=== PATIENT | female | born 1965 | race Caucasian/White ===

== ENCOUNTER 2017-11-22 13:42 | Outpatient (CLI) | payer BC ==
--- NOTE | 2017-11-22 15:26 | MMO ---
BILATERAL SCREENING MAMMOGRAM: Date: 11/22/17 HISTORY: Screening. COMPARISON: Multiple prior examinations, most recent from 2017. TECHNIQUE: Bilateral screening CC and MLO mammograms, as well as implant displaced mammograms performed. This patient's mammogram was interpreted with the assistance of computer-aided detection. FINDINGS: Benign calcifications right breast. Breast implants are intact. IMPRESSION: BIRADS 2: Benign Finding(s) Continued annual mammographic screening is recommended. POS: [facility]
== END 2017-11-22 13:43 | disposition home or self-care (01) ==
LOC: SCSMAMMO 13:42
PROVIDERS: ATTEND Obstetrics & Gynecology Gynecology
DX: Z12.31 Encounter for screening mammogram for malignant neoplasm of breast (principal)
CPT/HCPCS: 77067

== ENCOUNTER 2018-11-23 10:32 | Outpatient (CLI) | payer BC ==
--- NOTE | 2018-11-26 09:05 | MMO ---
Bilateral MAMMO Bilat Screen [facility]. CLINICAL HISTORY: Patient is 53 years old and is seen for screening. The patient has no family history of breast cancer. The patient has no personal history of cancer. The patient has a history of Implants in 2003 and Implants in 2016. There are bilateral retro-pectoral saline implants VIEWS: The views performed were: bilateral craniocaudal; bilateral mediolateral oblique; and bilateral Implant displaced. FILMS COMPARED: The present examination has been compared to prior imaging studies performed at [facility] on 11/22/2017, and at [facility] on 11/17/2014, 11/19/2015 and 11/21/2016. This study has been interpreted with the assistance of computer-aided detection. MAMMOGRAM FINDINGS: There are scattered fibroglandular densities. There are no suspicious masses, suspicious calcifications, or new areas of architectural distortion. IMPRESSION: THERE IS NO MAMMOGRAPHIC EVIDENCE OF MALIGNANCY. A ROUTINE FOLLOW-UP MAMMOGRAM IN 1 YEAR IS RECOMMENDED. ACR BI-RADS Category 1 - Negative MAMMOGRAPHY NOTE: 1. A negative mammogram report should not delay a biopsy if a dominant of clinically suspicious mass is present. 2. Approximately 10% to 15% of breast cancers are not detected by mammography. 3. Adenosis and dense breasts may obscure an underlying neoplasm. Reported by: KIRSTEN STRONG MD Electonically Signed: [id number]
== END 2018-11-23 10:33 | disposition home or self-care (01) ==
LOC: SCSMAMMO 10:32
PROVIDERS: ATTEND Obstetrics & Gynecology Gynecology
DX: Z12.31 Encounter for screening mammogram for malignant neoplasm of breast (principal); Z98.82 Breast implant status
CPT/HCPCS: 77067

== ENCOUNTER 2019-05-27 12:17 | Outpatient (CLI) | payer BC ==
--- NOTE | 2019-05-27 12:45 | RAD ---
Exam: XR Foot Rt 3 View STANDARD HISTORY: Right foot pain. Patient states pain and first tarsal bone. 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 No acute fracture, dislocation, or other acute osseous abnormality is identified. IMPRESSION: No acute osseous abnormality is identified.
--- NOTE | 2019-05-27 12:46 | RAD ---
Exam: XR Foot Lt 3 View STANDARD HISTORY: Left foot pain. Patient states arthritis. Pain at level of first tarsal bone. COMPARISON: None FINDINGS: No acute fracture, dislocation, or other acute osseous abnormality is identified. IMPRESSION: No acute osseous abnormality is identified.
== END 2019-05-27 12:18 | disposition home or self-care (01) ==
LOC: BICRAD 12:17
PROVIDERS: ATTEND Internal Medicine Rheumatology
DX: M79.671 Pain in right foot (principal); M79.672 Pain in left foot

== ENCOUNTER 2019-06-10 11:55 | Outpatient (CLI) | payer BC ==
--- NOTE | 2019-06-10 12:07 | RAD ---
Exam: XR Wrist 3 Rt View STANDARD HISTORY: Joint pain right wrist for several months. COMPARISON: None FINDINGS: Lucency is seen in the pisiform bone which could be relate to mild subchondral cystic changes. There is osteoarthritis with joint space narrowing involving scaphoid trapezium joint. No fracture or dislocation is seen involving the right wrist. IMPRESSION: 1. Osteoarthritis right wrist. No acute osseous abnormality is seen.
== END 2019-06-10 11:56 | disposition home or self-care (01) ==
LOC: BICRAD 11:55
PROVIDERS: ATTEND Internal Medicine Rheumatology
DX: M25.541 Pain in joints of right hand (principal); M19.031 Primary osteoarthritis, right wrist

== ENCOUNTER 2020-12-25 08:30 | Outpatient (CLI) | payer BC | END 2020-12-25 08:31 | disposition home or self-care (01) | LOC: BICMAMMO 08:30 | PROVIDERS: ATTEND Obstetrics & Gynecology Gynecology | DX: Z12.31 Encounter for screening mammogram for malignant neoplasm of breast (principal); Z98.82 Breast implant status | CPT/HCPCS: 77063; 77067 ==